=== PATIENT | female | born 1970 | race African-American/Black ===

== ENCOUNTER 2021-08-04 22:51 | Emergency (ER) | payer SELFPAY ==
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
--- NOTE | 2021-08-04 23:39 | EDPHYS ---
Physician Documentation [facility] Name: Kerry Teresa Age: 51 yrs Sex: Female : 1970 Arrival Date: 08/04/2021 Time: 22:51 Bed 11 Private MD: ED Physician Karely Frances HPI: 08/04 23:35 This 51 yrs old Black Female presents to ER via EMS with complaints of Arm Pain. sp3 23:35 51-year-old female with no past medical history presents to the ED for right wrist pain sp3 that has been occurring for 4 years is worsened over the last 4 months and today she decided she wanted to seek care. There has been no acute trauma in the recent past and patient states that the pain has not materially changed over the last 4 months. Patient states she has no local physicians and has not been fully evaluated for her symptoms. On ROS patient denies headache, neck pain, chest pain, back pain, shortness of breath, elbow pain, shoulder pain, loss of function of the hand, loss of mobility or motility, any other significant findings on ROS.. Historical: - Allergies: 22:55 No Known Allergies; jh5 - PMHx: 22:55 None; [facility] - Immunization history:: Adult Immunizations up to date. - Social history:: Smoking status: Patient denies any tobacco usage or history of. Patient uses alcohol, occasionally. ROS: 23:36 Constitutional: Negative for fever, chills, and weight loss, Eyes: Negative for injury, sp3 pain, redness, and discharge, Neck: Negative for injury, pain, and swelling, Cardiovascular: Negative for chest pain, palpitations, and edema, Respiratory: Negative for shortness of breath, cough, wheezing, and pleuritic chest pain, Abdomen/GI: Negative for abdominal pain, nausea, vomiting, diarrhea, and constipation, Skin: Negative for injury, rash, and discoloration, Neuro: Negative for headache, weakness, numbness, tingling, and seizure. 23:36 All other systems are negative. Exam: 23:36 Constitutional: This is a well developed, well nourished patient who is awake, alert, sp3 and in no acute distress. Head/Face: Normocephalic, atraumatic. Neck: Trachea midline, no thyromegaly or masses palpated, and no cervical lymphadenopathy. Supple, full range of motion without nuchal rigidity, or vertebral point tenderness. No Meningismus. Chest/axilla: Normal chest wall appearance and motion. Nontender with no deformity. No lesions are appreciated. Cardiovascular: Regular rate and rhythm with a normal S1 and S2. No gallops, murmurs, or rubs. Normal PMI, no JVD. No pulse deficits. Respiratory: Lungs have equal breath sounds bilaterally, clear to auscultation and percussion. No rales, rhonchi or wheezes noted. No increased work of breathing, no retractions or nasal flaring. Abdomen/GI: Soft, non-tender, with normal bowel sounds. No distension or tympany. No guarding or rebound. No evidence of tenderness throughout. Back: No spinal tenderness. No costovertebral tenderness. Full range of motion. Neuro: Awake and alert, GCS 15, oriented to person, place, time, and situation. Cranial nerves II-XII grossly intact. Motor strength 5/5 in all extremities. Sensory grossly intact. Cerebellar exam normal. Normal gait. Psych: Awake, alert, with orientation to person, place and time. Behavior, mood, and affect are within normal limits. 23:36 Musculoskeletal/extremity: Patient's right wrist and hand has no swelling. There is pain to palpation of the distal wrist on the radial side that is out of proportion to exam findings or degree of pressure. Radial pulses normal as is cap refill. Patient has full range of motion including supination and pronation. Elbow exam is normal. There is no muscle wasting.. Vital Signs: 22:52 BP 121 / 84; Pulse 80; Resp 18; Temp 98.4; Pulse Ox 100% ; Weight 54.43 kg; Height 5 jh5 ft. 5 in. (165.10 cm); 23:29 Pulse 86; Resp 18; Pulse Ox 100% on R/A; ld1 22:52 Body Mass Index 19.97 (54.43 kg, 165.10 cm) jh5 MDM: 23:30 Patient medically screened. sp3 23:37 Data reviewed: vital signs, nurses notes. ED course: Patient was resting comfortably sp3 fully asleep and upon waking up had pain out of proportion to exam. I do not believe patient has an acute emergency and her symptoms have been occurring for 4 years. Will discharge patient on diclofenac prescription and orthopedic referral. No further work-up indicated in the ED.. Administered Medications: No medications were administered Disposition Summary: 08/04/21 23:38 Discharge Ordered Location: Home sp3 Condition: Stable sp3 Diagnosis - Pain in right wrist sp3 Followup: sp3 - With: Ignacio Epps MD - When: As needed - Reason: Recheck today's complaints Discharge Instructions: - Discharge Summary Sheet sp3 - Musculoskeletal Pain sp3 Forms: - Medication Reconciliation Form sp3 - Thank You Letter sp3 - Antibiotic Education sp3 - Prescription Opioid Use sp3 Prescriptions: - Diclofenac Sodium 75 mg Oral Tablet Sustained Release - take 1 tablet by ORAL route 2 times per day; 30 tablet; Refills: 0, Product sp3 Selection Permitted Signatures: Karely Frances MD MD sp3 Beverly Ybarra RN RN jh5
[2021-08-04 23:55] VITALS: BP 121/84; TEMP 98.4; O2SAT 100
== END 2021-08-04 23:45 | disposition home or self-care (01) ==
LOC: ER 22:51
DX: M25.531 Pain in right wrist (principal)
CPT/HCPCS: 99283

== ENCOUNTER 2021-10-20 08:32 | Inpatient (IN) | payer SELFPAY ==
[2021-10-20] MEDS: CEFTRIAXONE 1,000 MG in NA CHLORIDE 0.9% 50 ML IVPB SCH (09:00)
[2021-10-20 09:38] LABS: Absolute Lymphocytes (CBC) 2.3 K/uL (0.7-4.9); Hematocrit 36.6 % (36.0-45.0); Lymphocytes % 43.1 % (15.3-44.8); MPV 8.5 fL (7.6-11.3); RBC Red Blood Cell Count 4.15 M/uL (3.86-4.86)
[2021-10-20 09:49] LABS: Protime INR 0.98
[2021-10-20] MEDS ORDERED: THIAMINE 200 MG/2 ML INJ ONE (09:51)
[2021-10-20] MEDS ORDERED: NA CHLORIDE 0.9% 1,000 ML ONE (09:51)
[2021-10-20 09:56] LABS: Urine Blood Trace-intact (Negative); Urine Glucose Negative (Negative); Urine Protein Negative (Negative); Urine Specific Gravity 1.015 (1.005-1.030)
[2021-10-20 10:07] LABS: ALT/SGPT 19 U/L (12-78); AST/SGOT 26 U/L (15-37); Albumin 3.3 g/dL (3.4-5.0); Alkaline Phosphatase 102 U/L (45-117); BUN Blood Urea Nitrogen 7 mg/dL (7-18); Bicarbonate 27 mmol/L (21-32); Bilirubin Total 0.3 mg/dL (0.2-1.0); Glucose Level 93 mg/dL (74-106); Potassium 3.8 mmol/L (3.5-5.1); Protein, Total 8.8 g/dL (6.4-8.2); Sodium Level 139 mmol/L (136-145)
[2021-10-20 10:08] LABS: Barbiturates NEGATIVE (NEGATIVE); Benzodiazepines NEGATIVE (NEGATIVE); Cocaine NEGATIVE (NEGATIVE); METHAMPHETAM NEGATIVE (NEGATIVE); Methadone NEGATIVE (NEGATIVE); Opiates NEGATIVE (NEGATIVE); Phencyclidine NEGATIVE (NEGATIVE); THC Cannibis NEGATIVE (NEGATIVE)
[2021-10-20 10:13] LABS: Bilirubin Direct < 0.1 mg/dL (0-0.2)
--- NOTE | 2021-10-20 10:41 | EDPHYS ---
Physician Documentation [facility] Name: Kerry Teresa Age: 51 yrs Sex: Female : 1970 Arrival Date: 10/20/2021 Time: 08:35 Bed 19 Private MD: ED Physician Hari Alberts HPI: 10/20 10:31 This 51 yrs old Black Female presents to ER via EMS with complaints of etoh abuse and rigoberto tylenol overdose. 10:31 The patient presents to the emergency department after a known overdose, that was rigoberto intentional. Context: Time: this morning, last night, Extent: moderate ingestion, the original prescription was for 12 pills/capsules, tylenol 500 mg 12-20. Associated signs and symptoms: The patient has no apparent associated signs or symptoms. Severity of symptoms: At their worst the symptoms were mild in the emergency department the symptoms are unchanged. The patient presents to the emergency department with anxiety, depression, a history of substance abuse, Type: beer. Onset: The symptoms/episode began/occurred this morning, last night. Past psychiatric history: Prior diagnosis: depression. 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 - Social history:: Smoking status: Patient reports the use of cigarette tobacco products, smokes one-half pack cigarettes per day. - Family history:: not pertinent. ROS: 10:31 Constitutional: Negative for fever, chills, and weight loss, Eyes: Negative for injury, rigoberto pain, redness, and discharge, ENT: Negative for injury, pain, and discharge, Neck: Negative for injury, pain, and swelling, Cardiovascular: Negative for chest pain, palpitations, and edema, Respiratory: Negative for shortness of breath, cough, wheezing, and pleuritic chest pain, Abdomen/GI: Negative for abdominal pain, nausea, vomiting, diarrhea, and constipation, Back: Negative for injury and pain, : Negative for injury, bleeding, discharge, and swelling, MS/Extremity: Negative for injury and deformity, Skin: Negative for injury, rash, and discoloration, Neuro: Negative for headache, weakness, numbness, tingling, and seizure, Allergy/Immunology: Negative for hives, rash, and allergies, Endocrine: Negative for neck swelling, polydipsia, polyuria, polyphagia, and marked weight changes, Hematologic/Lymphatic: Negative for swollen nodes, abnormal bleeding, and unusual bruising. 10:31 Psych: Positive for anxiety, depression, suicidal ideation. Exam: 10:31 Constitutional: This is a well developed, well nourished patient who is awake, alert, rigoberto and in no acute distress. Head/Face: Normocephalic, atraumatic. Eyes: Pupils equal round and reactive to light, extra-ocular motions intact. Lids and lashes normal. Conjunctiva and sclera are non-icteric and not injected. Cornea within normal limits. Periorbital areas with no swelling, redness, or edema. ENT: Nares patent. No nasal discharge, no septal abnormalities noted. Tympanic membranes are normal and external auditory canals are clear. Oropharynx with no redness, swelling, or masses, exudates, or evidence of obstruction, uvula midline. Mucous membranes moist. Neck: Trachea midline, no thyromegaly or masses palpated, and no cervical lymphadenopathy. Supple, full range of motion without nuchal rigidity, or vertebral point tenderness. No Meningismus. Chest/axilla: Normal chest wall appearance and motion. Nontender with no deformity. No lesions are appreciated. Cardiovascular: Regular rate and rhythm with a normal S1 and S2. No gallops, murmurs, or rubs. Normal PMI, no JVD. No pulse deficits. Respiratory: Lungs have equal breath sounds bilaterally, clear to auscultation and percussion. No rales, rhonchi or wheezes noted. No increased work of breathing, no retractions or nasal flaring. Abdomen/GI: Soft, non-tender, with normal bowel sounds. No distension or tympany. No guarding or rebound. No evidence of tenderness throughout. Back: No spinal tenderness. No costovertebral tenderness. Full range of motion. Skin: Warm, dry with normal turgor. Normal color with no rashes, no lesions, and no evidence of cellulitis. MS/ Extremity: Pulses equal, no cyanosis. Neurovascular intact. Full, normal range of motion. Neuro: Awake and alert, GCS 15, oriented to person, place, time, and situation. Cranial nerves II-XII grossly intact. Motor strength 5/5 in all extremities. Sensory grossly intact. Cerebellar exam normal. Normal gait. Psych: Awake, alert, with orientation to person, place and time. Behavior, mood, and affect are within normal limits. 10:31 ECG was reviewed by the Attending Physician. Vital Signs: 08:37 BP 111 / 83; Pulse 87; Resp 18; Temp 98.3(O); Pulse Ox 99% on R/A; Weight 54.43 kg; gomez Height 5 ft. 2 in. (157.48 cm); 10:47 BP 105 / 73; Pulse 16; Resp 82; Pulse Ox 97% on R/A; gomez 08:37 Body Mass Index 21.95 (54.43 kg, 157.48 cm) gomez MDM: 08:37 Patient medically screened. [facility] 10:36 Data reviewed: vital signs, nurses notes, lab test result(s), EKG. Data interpreted: [facility] threat monitoring analyst: rate is 87 beats/min, rhythm is regular, Pulse oximetry: on room air is 99 %. Test interpretation: by ED physician or midlevel provider: ECG. Counseling: I had a detailed discussion with the patient and/or guardian regarding: the historical points, exam findings, and any diagnostic results supporting the discharge/admit diagnosis, lab results, radiology results, the need for further work-up and treatment in the hospital. 10/20 08:53 Order name: Acetaminophen [facility] 10/20 08:53 Order name: Basic Metabolic Panel; Complete Time: 10:22 [facility] 10/20 08:53 Order name: CBC with Diff; Complete Time: 10:22 [facility] 10/20 08:53 Order name: ETOH Level; Complete Time: 10:22 [facility] 10/20 08:53 Order name: Hepatic Function; Complete Time: 10:22 [facility] 10/20 08:53 Order name: PT-INR; Complete Time: 10:22 [facility] 10/20 08:53 Order name: Ptt, Activated; Complete Time: 10:22 [facility] 10/20 08:53 Order name: Salicylate; Complete Time: 10:22 [facility] 10/20 08:53 Order name: Urine Drug Screen; Complete Time: 10:22 [facility] 10/20 08:53 Order name: Acetaminophen Level; Complete Time: 10:22 EDMS 10/20 09:56 Order name: Urine Dipstick-Ancillary; Complete Time: 10:22 [facility]MS 10/20 10:23 Order name: Urine Culture [facility] 10/20 10:24 Order name: Urine Culture [facility] 10/20 11:23 Order name: COVID-19 SARS RT PCR (Document "Date of Onset" if Symptomatic) 10/20 08:53 Order name: EKG; Complete Time: 08:53 [facility] 10/20 08:53 Order name: EKG - Nurse/Tech; Complete Time: 09:43 [facility] 10/20 08:53 Order name: IV Saline Lock; Complete Time: 09:43 [facility] 10/20 08:53 Order name: Labs collected and sent; Complete Time: 09:43 [facility] 10/20 08:53 Order name: Urine Dipstick-Ancillary (obtain specimen); Complete Time: 10:09 [facility] 10/20 08:53 Order name: Urine Test (obtain specimen); Complete Time: 10:08 [facility] 10/20 12:50 Order name: SARS-COV-2 RT PCR EDMS EC:31 Rate is 86 beats/min. Rhythm is regular. QRS [place] is Normal. [place] interval is normal. QRS rigoberto interval is normal. QT interval is normal. No Q waves. T waves are Normal. No ST changes noted. Clinical impression: NSR w/ Non-specific ST/T Changes and No evidence of ischemia. Interpreted by me. Reviewed by me. Administered Medications: 09:56 Drug: Thiamine 100 mg Route: IV; Rate: per protocol; Site: left antecubital; gomez 10:08 Drug: NS 0.9% 1000 ml Route: IV; Rate: 1 bolus; Site: left antecubital; gomez 11:06 Drug: Rocephin (cefTRIAXone) 1 grams Route: IV; Rate: per protocol; Site: left gomez antecubital; Disposition Summary: 10/20/21 10:41 Hospitalization Ordered Hospitalization Status: Observation rigoberto Location: Telemetry/MedSurg (observation) rigoberto Condition: Fair rigoberto Problem: new rigoberto Symptoms: have improved rigoberto Bed/Room Type: Standard rigoberto Provider: Prince Brianna(10/20/21 10:46) rigoberto Room Assignment: [facility](10/20/21 12:35) ss Diagnosis - Alcohol abuse with intoxication rigoberto - Poisoning by unspecified drugs, medicaments and biological substances, rigoberto undetermined, initial encounter - UTI/ Urinary tract infection, site not specified [facility] Forms: - Medication Reconciliation Form rigoberto - SBAR form [facility] Signatures: Dispatcher [employer] EDHari Villaseñor MD MD cha Smirch, Shelby, RN RN ss SpeedyrGiovanna RN RN gomez Corrections: (The following items were deleted from the chart) 10:41 10:41 Anemia, unspecified counts include 234 beds at the [facility] 10:46 10:41 Jarad Som counts include 234 beds at the [facility] 12:35 10:41 rigoberto
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
[2021-10-20] MEDS ORDERED: CEFTRIAXONE 1000 MG/VIAL ONE (11:05)
[2021-10-20] MEDS ORDERED: ACETYLCYST 6,000 MG/30 ML VIAL PO ONE (12:00)
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
[2021-10-20 15:30] VITALS: BMI 20.8
[2021-10-20] MEDS ORDERED: D5W IV ONE ×3 (16:00→21:00)
[2021-10-20] MEDS ORDERED: ACETYLCYSTEINE IV ONE ×5 (16:00→21:00)
[2021-10-20] MEDS ORDERED: DEXTROSE 5% IV ONE ×2 (16:15→17:00)
[2021-10-20] MEDS ORDERED: WATER IV ONE ×2 (16:15→17:00)
[2021-10-20] MEDS: NA CHLORIDE 0.9% 1,000 ML IV SCH (16:19)
[2021-10-20] MEDS: ENOXAPARIN 40 MG/0.4 ML SQ SCH (17:54)
[2021-10-21] MEDS: NA CHLORIDE 0.9% 1,000 ML IV SCH ×4 (01:24→21:24)
[2021-10-21] MEDS: CEFTRIAXONE 1,000 MG in NA CHLORIDE 0.9% 50 ML IVPB SCH (09:00)
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
--- NOTE | 2021-10-21 11:35 | EKG ---
Test Date: 2021-10-20 Test Time: 09:42:15 Trimming Cutter: HAUS MEASUREMENT RESULTS: Intervals: Rate: 86 MS: 124 QRSD: 70 QT: 388 QTc: 464 [place]: P: 34 MS: 124 QRS: 32 T: 56 INTERPRETIVE STATEMENTS: Normal sinus rhythm Septal infarct, age undetermined Abnormal ECG No previous ECG available for comparison Electronically Signed On 10-21-21 11:29:27 CLIENT ACCOUNT MANAGER by Benjamín Cisse
--- NOTE | 2021-10-21 13:09 | P.PN ---
Subjective Date of Service: 10/21/21 Chief Complaint: Tylenol toxicity Subjective: Improving (Mental status is returned to baseline. Tylenol level is now undetectable after 24 hours of IV acetylcysteine.) Physical Examination - Vital Signs Temperature: 98.3 F Blood Pressure: 137/86 Pulse: 69 Respirations: 18 Pulse Ox (%): 98 - Physical Exam General: Alert, In no apparent distress, Cooperative HEENT: Atraumatic, Normocephalic Respiratory: Clear to auscultation bilaterally, Normal air movement Cardiovascular: Regular rate/rhythm, Normal S1 S2 Gastrointestinal: Soft and benign, Non-distended Neurological: Normal speech, Normal affect Assessment And Plan - Current Problems (Diagnosis) (1) Toxic encephalopathy Current Visit: Yes Status: Acute (2) ETOH abuse Current Visit: Yes Status: Acute (3) Tylenol toxicity Current Visit: Yes Status: Acute Physician Review Additional Text: Assessment Patient is a 51-year-old -[place] African female currently being admitted for toxic encephalopathy. She had Tylenol level of 149 and EtOH level of 296. She required 24-hour treatment with IV acetylcysteine. Her Tylenol level is now undetectable. Its believed that she might have been taken several pills of Tylenol. [facility] was consulted for mental health. Toxic encephalopathy EtOH abuse Plan: [facility] recommends inpatient psych We will hold discharge until then Otherwise, she is medically cleared for discharge whenever we obtain acceptance She cannot leave AMA.
[2021-10-21] MEDS: ENOXAPARIN 40 MG/0.4 ML SQ SCH (16:53)
[2021-10-22] MEDS: NA CHLORIDE 0.9% 1,000 ML IV SCH (05:25)
[2021-10-22] MEDS: CEFTRIAXONE 1,000 MG in NA CHLORIDE 0.9% 50 ML IVPB SCH (08:04)
--- NOTE | 2021-10-22 09:45 | P.PN ---
Subjective Date of Service: 10/22/21 Chief Complaint: Tylenol toxicity Subjective: Improving, Other (Doing well. Mental status is back to baseline. She is pending transfer to inpatient psych unit.) Physical Examination - Vital Signs Temperature: 97.3 F Blood Pressure: 145/83 Pulse: 66 Respirations: 17 Pulse Ox (%): 98 - Physical Exam General: Alert, In no apparent distress, Cooperative HEENT: Atraumatic, Normocephalic Respiratory: Clear to auscultation bilaterally, Normal air movement Cardiovascular: Normal pulses, Regular rate/rhythm, Normal S1 S2 Gastrointestinal: Soft and benign, Non-distended Musculoskeletal: No clubbing, No swelling, No contractures, No erythema, No tenderness Neurological: Normal speech, Normal affect - Studies Microbiology Data (last 24 hrs): 10/20/21 10:23 Clean Catch Urine [place] Count - Final 10/20/21 10:23 Clean Catch Urine - Final Escherichia Coli Esbl Gram Neg Satny Assessment And Plan - Current Problems (Diagnosis) (1) Toxic encephalopathy Current Visit: Yes Status: Acute (2) ETOH abuse Current Visit: Yes Status: Acute (3) Tylenol toxicity Current Visit: Yes Status: Acute Physician Review Additional Text: Assessment Patient is a 51-year-old -Greek female currently being admitted for toxic encephalopathy. She had Tylenol level of 149 and EtOH level of 296. She required 24-hour treatment with IV acetylcysteine. Her Tylenol level is now undetectable. Its believed that she might have been taken several pills of Tylenol. [facility] was consulted for mental health. Toxic encephalopathy EtOH abuse UTI- Plan: [facility] recommends inpatient psych Patient has ESBL E.coli. DC ceftriaxone and start meropenem Will plan to [place] for at least 3 days. She can be discharged on IM ertapenem Otherwise, she is medically cleared for discharge whenever we obtain acceptance She cannot leave A.
[2021-10-22] MEDS: Meropenem 1,000 MG in NA CHLORIDE 0.9% 100 ML IV SCH ×3 (10:45→23:28)
[2021-10-22] MEDS: ENOXAPARIN 40 MG/0.4 ML SQ SCH (17:55)
[2021-10-22] MEDS: MELATONIN 5 MG TABLET PO PRN (20:33)
[2021-10-23] MEDS: Meropenem 1,000 MG in NA CHLORIDE 0.9% 100 ML IV SCH ×3 (08:11→23:47)
[2021-10-23 08:21] VITALS: O2SAT 97
--- NOTE | 2021-10-23 10:01 | P.PN ---
Subjective Date of Service: 10/23/21 Chief Complaint: Tylenol toxicity Subjective: Improving (No acute events overnight) Physical Examination - Vital Signs Temperature: 97.2 F Blood Pressure: 127/76 Pulse: 73 Respirations: 16 Pulse Ox (%): 97 - Physical Exam General: Alert, In no apparent distress, Cooperative HEENT: Atraumatic, Normocephalic Musculoskeletal: No clubbing, No swelling, No contractures Neurological: Normal speech, Normal affect - Studies Microbiology Data (last 24 hrs): 10/20/21 10:23 Clean Catch Urine [place] Count - Final 10/20/21 10:23 Clean Catch Urine - Final Escherichia Coli Esbl Gram Neg Santy Assessment And Plan - Current Problems (Diagnosis) (1) Toxic encephalopathy Current Visit: Yes Status: Acute (2) ETOH abuse Current Visit: Yes Status: Acute (3) Tylenol toxicity Current Visit: Yes Status: Acute Physician Review Additional Text: Assessment Patient is a 51-year-old -Eritre[place] female currently being admitted for toxic encephalopathy. She had Tylenol level of 149 and EtOH level of 296. She required 24-hour treatment with IV acetylcysteine. Her Tylenol level is now undetectable. Its believed that she might have been taken several pills of Tylenol. [facility] was consulted for mental health and they recommended inpatient psych admission. Toxic encephalopathy EtOH abuse UTI- Plan: Discharge once accepted to inpatient psych ESBL E. colic. Day 2 of meropenem Will plan to [place] for at least 3 days. She can be discharged on IM ertapenem She cannot leave AMA. 10/23/21 09:59
[2021-10-23] MEDS: ENOXAPARIN 40 MG/0.4 ML SQ SCH (16:14)
[2021-10-23] MEDS: MELATONIN 5 MG TABLET PO PRN (20:29)
[2021-10-24] MEDS: Meropenem 1,000 MG in NA CHLORIDE 0.9% 100 ML IV SCH ×2 (09:45→17:00)
[2021-10-24 16:10] VITALS: BP 123/73; TEMP 97.5
[2021-10-24] MEDS: ENOXAPARIN 40 MG/0.4 ML SQ SCH (17:00)
== END 2021-10-24 18:10 | disposition home or self-care (01) | DRG 92 ==
LOC: ER 08:32 → ERHOLD 10:59 → 2ND 14:21 → OBSVTOIN 17:05
PROVIDERS: ADMIT Internal Medicine; ATTEND Internal Medicine
DX: G92.8 Other toxic encephalopathy (principal); N39.0 Urinary tract infection, site not specified; Z16.12 Extended spectrum beta lactamase (ESBL) resistance; T39.1X5A Adverse effect of 4-Aminophenol derivatives, initial encounter; F10.10 Alcohol abuse, uncomplicated; B96.20 Unspecified Escherichia coli [E. coli] as the cause of diseases classified elsewhere; Z20.822 Contact with and (suspected) exposure to COVID-19
CPT/HCPCS: 36415; 80048; 80076; 80307; 80320; 80329; 81003; 85025; 85610; 85730; 87077; 87086; 87088; 87186; 93005; 96374; 96375; 99285; G0378; J0132; J1650; J2185; J3411; J7030; J7060; U0003

== ENCOUNTER → 2023-08-30 | Emergency (ER) | payer OTHER, SELFPAY ==
[~2023-08-30] MED LIST: FAMOTIDINE 20 MG/2 ML VIAL IV ONE; NA CHLORIDE 0.9% 1,000 ML ONE; ONDANSETRON 4 MG/2 ML VIAL ONE
[2023-08-30 20:19] LABS: Hematocrit 38.1 % (36.0-45.0); MCV 94.1 fL (80-100); MPV 7.6 fL (7.6-11.3); Platelets 222 thou/uL (152-406); RBC Red Blood Cell Count 4.05 M/uL (3.86-4.86)
[2023-08-30 20:39] LABS: Albumin 3.3 g/dL (3.4-5.0); Bilirubin Total 0.4 mg/dL (0.2-1.0); Potassium 3.7 mEq/L (3.5-5.1); Protein, Total 8.9 g/dL (6.4-8.2)
[2023-08-30 20:46] LABS: Protime INR 0.97
[2023-08-30 20:48] LABS: Magnesium 1.9 mg/dL (1.6-2.4); NT PRO-BNP 24 pg/mL (<125)
--- NOTE | 2023-08-30 21:01 | RAD REPORT ---
EXAM DESCRIPTION: Avani Single View08/30/2023 8:53 pm CLINICAL HISTORY: CHEST PAIN COMPARISON: No comparisons TECHNIQUE: Portable AP view of the chest. FINDINGS: The lungs are clear. No pneumothorax or effusion. The cardiomediastinal contours are unre markable. IMPRESSION: No acute cardiopulmonary process.
[2023-08-30 21:19] LABS: Specific Gravity < 1.005 (1.005-1.030); Urine Bacteria <20 /HPF (<20); Urine Bilirubin NEGATIVE (Negative); Urine Blood Trace (Negative); Urine Clarity Extremely Turbid (Clear); Urine Color Colorless (Yellow); Urine Glucose NEGATIVE (Negative); Urine Protein NEGATIVE (Negative); Urine RBC <5 /HPF (None Seen); Urine Urobilinogen Normal (Normal); Urine pH 6.5 (5.0-7.0)
[2023-08-30 21:22] LABS: Barbiturates NEGATIVE (NEGATIVE); Benzodiazepines NEGATIVE (NEGATIVE); Cocaine NEGATIVE (NEGATIVE); METHAMPHETAM NEGATIVE (NEGATIVE); Methadone NEGATIVE (NEGATIVE); Opiates NEGATIVE (NEGATIVE); Phencyclidine NEGATIVE (NEGATIVE); THC Cannibis NEGATIVE (NEGATIVE)
[2023-08-30 21:22] LABS: Troponin High Sensitivity < 3.0 pg/mL (<58.9)
--- NOTE | 2023-08-31 00:45 | ER ---
Nurse's Notes [facility] Name: Kerry Teresa Age: 53 yrs Sex: Female : 1970 Arrival Date: 08/30/2023 Time: 18:34 Bed 16 Private MD: Diagnosis: Nausea with vomiting, unspecified;Diarrhea, unspecified;Alcohol dependence with intoxication Presentation: 08/30 19:37 Chief complaint: Patient states: vomiting, body aches, chills, ABD pain and chest pain km8 starting yesterday; pt is a daily 6 pack beer drinker and has not been able to keep her beer down. Coronavirus screen: Client denies travel out of the [place] in the last 14 days. Ebola Screen: No symptoms or risks identified at this time. Initial Sepsis Screen: Does the patient meet any 2 criteria? HR > 90 bpm. No. Patient's initial sepsis screen is negative. Does the patient have a suspected source of infection? No. Patient's initial sepsis screen is negative. Risk Assessment: Do you want to hurt yourself or someone else? Patient reports no desire to harm self or others. Onset of symptoms was August 29, 2023. 19:37 Method Of Arrival: Wheelchair km8 19:37 Acuity: KINGS 2 km8 Triage Assessment: 19:39 General: Appears uncomfortable, Behavior is cooperative, appropriate for age, anxious. km8 Pain: Complains of pain in chest, ABD, and body aches Pain currently is 10 out of 10 on a pain scale. EENT: No signs and/or symptoms were reported regarding the EENT system. Neuro: Level of Consciousness is awake, alert, obeys commands, Oriented to person, place, time, situation, tremors. Cardiovascular: Reports chest pain, Capillary refill < 3 seconds Patient's skin is warm and dry. Respiratory: Airway is patent Respiratory effort is even, unlabored, Respiratory pattern is regular, symmetrical. GI: Abdomen is Reports lower abdominal pain, upper abdominal pain, vomiting. : No signs and/or symptoms were reported regarding the genitourinary system. Derm: Skin is intact, Skin is dry, Skin is pink, warm \T\ dry. normal, Skin temperature is warm. Musculoskeletal: Range of motion: intact in all extremities. 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 - Social history:: Smoking status: Patient reports use of chewing tobacco. Patient uses alcohol, on a daily basis. claims drinking about a 6 pack/day. Patient/guardian denies using alcohol. Screenin:08 [facility] ED Fall Risk Assessment (Adult) History of falling in the last 3 months, kd3 including since admission No falls in past 3 months (0 pts) Confusion or Disorientation No (0 pts) Intoxicated or Sedated No (0 pts) Impaired Gait No (0 pts) Mobility Assist Device Used No (0 pt) Altered Elimination No (0 pt) Score/Fall Risk Level 0 - 2 = Low Risk Oriented to surroundings, Provided non-skid footwear, Hourly rounding (assess needs \T\ fall precautionary measures) done. Abuse screen: Denies threats or abuse. Denies injuries from another. Nutritional screening: No deficits noted. Tuberculosis screening: No symptoms or risk factors identified. Assessment: 20:12 General: Appears in no apparent distress. Behavior is calm, cooperative, appropriate kd3 for age. GI: No deficits noted. Abdomen is flat, non-distended, Bowel sounds present X 4 quads. Abd is soft and non tender X 4 quads. Reports nausea, vomiting. 20:12 General: Smells of alcohol. kd3 21:16 Reassessment: Patient appears in no apparent distress at this time. Pt became nauseated kd3 and had dry heaves after getting up to go to the bathroom. The patient was taken to and from the bathroom via wheelchair and only had to stand for transfers. PA Page notified. Vital Signs: 19:37 BP 105 / 74; Pulse 101; Resp 18; Temp 98.7(O); Pulse Ox 99% on R/A; Weight 54.43 kg km8 (R); Height 5 ft. 3 in. (R); Pain 10/10; 19:55 BP 117 / 88; Pulse 99; Resp 24; Pulse Ox 98% on R/A; kd3 19:55 BP 111 / 91; Pulse 92; Resp 20; Pulse Ox 98% ; kd3 23:44 BP 117 / 80; Pulse 92; Resp 20; Pulse Ox 94% on R/A; jb4 08/31 00:00 BP 111 / 79; Pulse 96; Resp 20; Pulse Ox 100% ; jb4 01:00 BP 108 / 62; Pulse 79; Resp 18; Temp 98; Pulse Ox 98% ; 4 08/30 19:37 Body Mass Index 21.26 (54.43 kg, 160.02 cm) [facility] 08/30 19:37 Pain Scale: Adult [facility] Vitals: 08/30 20:08 Cardiac Rhythm Assessment Regular Sinus rhythm. kd3 [place] Coma Score: 20:08 Eye Response: spontaneous(4). Motor Response: obeys commands(6). Verbal Response: kd3 oriented(5). Total: 15. 08/31 01:00 Eye Response: spontaneous(4). Motor Response: obeys commands(6). Verbal Response: jb4 oriented(5). Total: 15. ED Course: 08/30 18:37 Patient arrived in ED. im 19:20 Hari Doan PA is PHCP. cp 19:20 Karely Frances MD is Attending Physician. cp 19:39 Triage completed. km8 19:39 Arm band placed on right wrist. km8 20:06 Sunitha Rivera, LETY is Primary Nurse. kd3 20:08 No apparent distress. Awaiting lab results. kd3 20:08 Patient has correct armband on for positive identification. Fall risk band placed. kd3 Placed in gown. Bed in low position. Call light in reach. Side rails up X2. Provided Education on: Plan of care. Client placed on continuous cardiac and pulse oximetry monitoring. NIBP monitoring applied. 20:08 CBC with Diff Sent. kd3 20:08 CMP Sent. kd3 20:08 Lipase Sent. kd3 20:08 No provider procedures requiring assistance completed. Inserted saline lock: 20 gauge kd3 in left forearm, using aseptic technique. 20:47 XRAY Chest (1 view) Sent. kd3 20:47 Troponin HS Sent. kd3 20:48 ETOH Level Sent. kd3 20:48 Inserted saline lock: 20 gauge in left hand, using aseptic technique. Blood collected. kd3 20:54 XRAY Chest (1 view) In Process Unspecified. EDMS 21:06 UDS Sent. ls5 23:23 CT Abd/Pelvis - IV Contrast Only In Process Unspecified. EDMS 08/31 00:15 Michele Olea MD is Attending Physician. cp 01:07 IV discontinued, intact, bleeding controlled, No redness/swelling at site. Pressure jb4 dressing applied. Administered Medications: 08/30 20:46 Drug: NS 0.9% IV 1000 ml IV at 1000 ml/hr Per protocol; 1000 mL bolus Route: IV; Rate: kd3 1000 ml/hr; Site: left forearm; 08/31 00:28 Follow up: IV Status: Completed infusion; IV Intake: 1000ml jb4 08/30 20:51 Drug: Ondansetron IVP 4 mg IVP once; over 2 minutes Route: IVP; Site: left forearm; kd3 08/31 00:29 Follow up: Response: No adverse reaction jb4 08/30 20:51 Drug: Famotidine IVP 20 mg IVP once; dilute with 10 mL 0.9% NaCl; give over 2 minutes kd3 Route: IVP; Site: left forearm; 08/31 00:29 Follow up: Response: No adverse reaction jb4 Medication: 08/30 20:08 VIS not applicable for this client. kd3 Intake: 08/31 00:28 IV: 1000ml; Total: 1000ml. jb4 Outcome: 00:44 Discharge ordered by . cp 01:07 Discharged to home with significant other, jb4 01:07 Condition: stable 01:07 Discharge instructions given to significant other, Instructed on discharge instructions, follow up and referral plans. Demonstrated understanding of instructions, follow-up care, 01:33 Patient left the ED. jb4 Signatures: Dispatcher [employer] [facility] Hari Doan PA PA cp Bryson, James RN RN jb4 Sunitha Rivera RN RN kd3 Niranjan Acharya ls5 Shereen Mak Katie RN RN km8 Corrections: (The following items were deleted from the chart) 08/30 19:39 19:39 PMHx: None; km8 km8 21:31 20:12 GI: No deficits noted. Abdomen is flat, non-distended, Bowel sounds present X 4 kd3 quads. Abd is soft and non tender X 4 quads. Reports nausea, vomiting, kd3
--- NOTE | 2023-08-31 00:45 | EDPHYS ---
Physician Documentation [facility] [place] Name: Kerry Teresa Age: 53 yrs Sex: Female : 1970 Arrival Date: 08/30/2023 Time: 18:34 Bed 16 Private MD: ED Physician Michele Olea HPI: 08/30 20:00 This 53 yrs old Black Female presents to ER via Wheelchair with complaints of cp Vomiting/Diarrhea. 20:00 The patient presents to the emergency department with nausea, that is moderate, cp vomiting, that is intermittent, diarrhea, that is intermittent. 20:00 Onset: The symptoms/episode began/occurred yesterday. cp 20:00 Possible causes: unknown. Associated signs and symptoms: Pertinent positives: abdominal cp pain, chest pain, Pertinent negatives: constipation, fever, GI bleeding. Severity of symptoms: in the emergency department the symptoms are unchanged despite home interventions. Patient reports daily drinking of alcohol: beer. Patient reports being unable to "hold beer down". 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 - Social history:: Smoking status: Patient reports use of chewing tobacco. Patient uses alcohol, on a daily basis. claims drinking about a 6 pack/day. Patient/guardian denies using alcohol. ROS: 20:05 Constitutional: Positive for poor PO intake, Negative for fever, cp 20:05 Eyes: Negative for injury, pain, redness, and discharge, cp 20:05 ENT: Negative for ear pain, sore throat, difficulty swallowing, difficulty handling secretions, 20:05 Cardiovascular: Positive for chest pain, 20:05 Respiratory: Negative for cough, shortness of breath, wheezing, 20:05 Abdomen/GI: Positive for abdominal pain, nausea and vomiting, diarrhea, Negative for constipation, black/tarry stool, rectal bleeding, 20:05 Back: Negative for pain at rest, pain with movement, 20:05 : Negative for urinary symptoms, 20:05 Neuro: Negative for altered mental status, headache, syncope, 20:05 All other systems are negative, Exam: 20:10 Constitutional: The patient appears in no acute distress, alert, awake, cp non-diaphoretic, non-toxic, well developed, well nourished, smells of alcohol, ETOH, uncomfortable, unkempt, 20:10 Head/Face: Normocephalic, atraumatic. cp 20:10 Eyes: Periorbital structures: appear normal, Conjunctiva: normal, no exudate, no injection, Sclera: no appreciated abnormality, Lids and lashes: appear normal, bilaterally, 20:10 ENT: External ear(s): are unremarkable, Nose: is normal, Mouth: Lips: moist, Oral mucosa: pink and intact, moist, Posterior pharynx: Airway: no evidence of obstruction, patent, erythema, is not appreciated, exudate, is not appreciated, 20:10 Neck: ROM/movement: is normal, is supple, without pain, no range of motions limitations, no meningismus, 20:10 Chest/axilla: Inspection: normal, Palpation: crepitus, is not appreciated, tenderness, is not appreciated, 20:10 Cardiovascular: Rate: tachycardic, Rhythm: regular, Edema: is not appreciated, JVD: is not appreciated, 20:10 Respiratory: the patient does not display signs of respiratory distress, Respirations: normal, no use of accessory muscles, no retractions, labored breathing, is not present, Breath sounds: are clear throughout, no decreased breath sounds, no stridor, no wheezing, 20:10 Abdomen/GI: Inspection: abdomen appears normal, Bowel sounds: active, all quadrants, Palpation: soft, in all quadrants, moderate abdominal tenderness, in all quadrants, rebound tenderness, is not appreciated, involuntary guarding, is not appreciated, 20:10 Back: CVA tenderness, is absent, 20:10 Neuro: Orientation: to person, place \\T\\ time. Mentation: is normal, Motor: moves all fours, strength is normal, 21:40 ECG was reviewed by the Attending Physician. cp Vital Signs: 19:37 BP 105 / 74; Pulse 101; Resp 18; Temp 98.7(O); Pulse Ox 99% on R/A; Weight 54.43 kg km8 (R); Height 5 ft. 3 in. (R); Pain 10/10; 19:55 BP 117 / 88; Pulse 99; Resp 24; Pulse Ox 98% on R/A; kd3 19:55 BP 111 / 91; Pulse 92; Resp 20; Pulse Ox 98% ; kd3 23:44 BP 117 / 80; Pulse 92; Resp 20; Pulse Ox 94% on R/A; jb4 08/31 00:00 BP 111 / 79; Pulse 96; Resp 20; Pulse Ox 100% ; jb4 01:00 BP 108 / 62; Pulse 79; Resp 18; Temp 98; Pulse Ox 98% ; jb4 08/30 19:37 Body Mass Index 21.26 (54.43 kg, 160.02 cm) km8 08/30 19:37 Pain Scale: Adult km Anirudh Coma Score: 08/30 20:08 Eye Response: spontaneous(4). Motor Response: obeys commands(6). Verbal Response: kd3 oriented(5). Total: 15. 08/31 01:00 Eye Response: spontaneous(4). Motor Response: obeys commands(6). Verbal Response: jb4 oriented(5). Total: 15. MDM: 08/30 19:42 Patient medically screened. cp 21:00 Differential diagnosis: gastritis, pancreatitis, appendicitis, diverticulitis, viral cp gastroenteritis, gastroenteritis, acute SD, dehydration, cardiac arrythmia. 08/31 00:41 Data reviewed: vital signs, nurses notes, lab test result(s), EKG, radiologic studies, cp CT scan, and as a result, I will discharge patient. Consideration of Admission/Observation Escalation of care including admission/observation considered. ED course: Patient voided multiple times while in ED. Significant other at bedside. Will discharge to home for continued monitoring. 08/30 19:52 Order name: CBC with Diff; Complete Time: 21:41 cp 08/30 21:42 Interpretation: Normal except: BRANDON% 34.0; LYM% 59.0; NEUT A 1.7. cp 08/30 19:52 Order name: CMP; Complete Time: 21:41 cp 08/30 21:41 Interpretation: Normal except: AST 57; CA 8.0; TP 8.9; ALB 3.3; GLOB 5.6; A/G 0.6. cp 08/30 19:52 Order name: Lipase; Complete Time: 21:41 cp 08/30 19:52 Order name: Urinalysis w/ reflexes; Complete Time: 21:41 cp 08/30 21:41 Interpretation: Normal except: [facility] Extremely Turbid; Urine SG < 1.005; UBLD Trace; cp UESTR 500. 08/30 20:17 Order name: Magnesium; Complete Time: 21:41 cp 08/30 20:17 Order name: NT PRO-BNP; Complete Time: 21:41 cp 08/30 20:17 Order name: PT-INR; Complete Time: 21:41 cp 08/30 20:17 Order name: Troponin HS; Complete Time: 21:41 cp 08/30 20:18 Order name: UDS; Complete Time: 21:41 cp 08/30 20:18 Order name: ETOH Level; Complete Time: 21:41 cp 08/30 21:42 Interpretation: Abnormal: ETOH 430. cp 08/30 20:23 Order name: PTT, Activated Partial Thromb; Complete Time: 21:41 EDMS 08/30 20:17 Order name: XRAY Chest (1 view); Complete Time: 21:41 cp 08/30 21:43 Order name: CT Abd/Pelvis - IV Contrast Only cp 08/30 20:17 Order name: EKG; Complete Time: 20:18 cp 08/30 19:52 Order name: IV Saline Lock; Complete Time: 20:08 cp 08/30 19:52 Order name: Labs collected and sent; Complete Time: 20:08 cp 08/30 20:17 Order name: Cardiac monitoring; Complete Time: 20:47 cp 08/30 20:17 Order name: EKG - Nurse/Tech; Complete Time: 21:30 cp 08/30 20:17 Order name: O2 Per Protocol; Complete Time: 20:47 cp 08/30 20:17 Order name: O2 Sat Monitoring; Complete Time: 20:47 cp 08/31 00:45 Order name: PO challenge; Complete Time: 01:16 cp EC/11 21:40 Rate is 90 beats/min. Rhythm is regular. MO interval is normal. QRS interval is normal. cp QT interval is normal. T waves are Inverted in lead aVR. Interpreted by me. Reviewed by me. Administered Medications: 20:46 Drug: NS 0.9% IV 1000 ml IV at 1000 ml/hr Per protocol; 1000 mL bolus Route: IV; Rate: kd3 1000 ml/hr; Site: left forearm; 08/31 00:28 Follow up: IV Status: Completed infusion; IV Intake: 1000ml 4 08/30 20:51 Drug: Ondansetron IVP 4 mg IVP once; over 2 minutes Route: IVP; Site: left forearm; kd3 08/31 00:29 Follow up: Response: No adverse reaction jb4 08/30 20:51 Drug: Famotidine IVP 20 mg IVP once; dilute with 10 mL 0.9% NaCl; give over 2 minutes kd3 Route: IVP; Site: left forearm; 08/31 00:29 Follow up: Response: No adverse reaction jb4 Disposition: 04:02 Co-signature as Attending Physician, Michele Olea MD I reviewed the patient's care rt provided by the Advanced Practice Provider and agree with the diagnosis and treatment plan. Disposition Summary: 08/31/23 00:44 Discharge Ordered Notes: Location: Home cp Problem: new cp Symptoms: have improved cp Condition: Stable cp Diagnosis - Nausea with vomiting, unspecified cp - Diarrhea, unspecified cp - Alcohol dependence with intoxication cp Followup: cp - With: Private Physician - When: 2 - 3 days - Reason: Recheck today's complaints Discharge Instructions: - Discharge Summary Sheet cp - Alcohol Intoxication cp - Diarrhea, Adult cp - Nausea and Vomiting, Adult cp - Alcohol Abuse and Nutrition cp - Alcohol Abuse and Dependence Information, Adult cp Forms: - Medication Reconciliation Form cp - Thank You Letter cp - Antibiotic Education cp - Prescription Opioid Use cp - Patient Portal Instructions cp - Leadership Thank You Letter cp Signatures: Dispatcher [employer] EDOR Hari Doan PA PA cp Sunitha Rivera RN RN kd3 Michele Olea MD MD rt Lyric Low RN RN km8 Tejas Arrington RN jb4 Corrections: (The following items were deleted from the chart) 08/30 19:39 19:39 PMHx: None; edne harmon 20:24 20:18 PTT, ACTIVATED+COAG.LAB.BRZ ordered. EDOR EDMS 21:42 21:41 Normal except: BRANDON% 34.0; LYM% 59.0. cp cp
[2023-08-31 06:48] VITALS: BP 108/62; TEMP 98; O2SAT 98
--- NOTE | 2023-08-31 13:23 | EKG ---
Test Date: 2023-08-30 Test Time: 21:34:52 [place] Block Setter: JOSE MEASUREMENT RESULTS: Intervals: Rate: 90 MA: 144 QRSD: 72 QT: 384 QTc: 469 [place]: P: 76 MA: 144 QRS: 48 T: 68 INTERPRETIVE STATEMENTS: Normal sinus rhythm Low voltage QRS Septal infarct, age undetermined Abnormal ECG Compared to ECG 10/20/2021 09:42:15 Low QRS voltage now present Myocardial infarct finding still present Electronically Signed On 08-31-23 13:22:22 VISCOSE DEPARTMENT WORKER by Abelardo Worley
--- NOTE | 2023-08-31 22:33 | RAD REPORT ---
EXAM DESCRIPTION: CT - Abdomen Pelvis W Contrast - 08/31/2023 6:16 am CLINICAL HISTORY: 53 years Female ABD PAIN COMPARISON: None. TECHNIQUE: Contiguous axial images obtained through the abdomen and pelvis following IV contrast. Re formatted images obtained. This exam was performed according to our department optimization program which includes automated exp osure control, adjustment of the mA and/or kv according to patient size and/or use of iterative recon struction technique. FINDINGS: Minimal scarring/atelectasis in the lower lungs. Small hiatal hernia. The liver appears unremarkable. The spleen appears unremarkable. The pancreatic duct is mildly prominent in the region of the pancreatic head. No adrenal masses. Mild prominence of the renal collecting systems bilaterally. No ureteral calculi are identified. The findings may be secondary to distention of the urinary bladder. The gallbladder is visualized. No aneurysmal dilatation of the aorta. No bowel obstruction. The appendix appears unremarkable. There is colonic diverticulosis. No significant free pelvic fluid. The urinary bladder is distended. There are likely changes fr om previous hysterectomy. Small fat-containing umbilical hernia. Degenerative changes in the spine. IMPRESSION: Mild bilateral hydronephrosis likely secondary to distention of the urinary bladder. Mild prominence of the pancreatic duct in the pancreatic head. Electronically signed by: Kelvin Morillo MD 08/30/2023 11:57 PM DOCTOR ASSISTANT Due to temporary technical issues with the PACS/Fluency reporting system, reports are being signed by the in house radiologists without review as a courtesy to insure prompt reporting. The interpreting radiologist is fully responsible for the content of the report.
== END ==
LOC: ER 18:34
DX: R11.2 Nausea with vomiting, unspecified (principal); R19.7 Diarrhea, unspecified; F10.229 Alcohol dependence with intoxication, unspecified; F17.220 Nicotine dependence, chewing tobacco, uncomplicated
CPT/HCPCS: 96361; 93005; 85025; 81001; 36415; 83735; 85610; 85730; 84484; 83690; 80053; 83880; 80307; 74177; 71045; 96375; 96374; 99284; 82077; Q9967; J2405; J7030

== ENCOUNTER → 2023-09-21 | Emergency (ER) | payer OTHER ==
[~2023-09-21] MED LIST changes: +CEFTRIAXONE 1000 MG/VIAL ONE; -FAMOTIDINE 20 MG/2 ML VIAL IV ONE
[2023-09-21 13:18] LABS: SARS-CoV-2 Antigen Rapid Res Negative (Negative)
[2023-09-21 13:21] LABS: Specific Gravity < 1.005 (1.005-1.030); Urine Bacteria <20 /HPF (<20); Urine Bilirubin NEGATIVE (Negative); Urine Blood 1+ (Negative); Urine Clarity Extremely Turbid (Clear); Urine Color Light-Yellow (Yellow); Urine Glucose NEGATIVE (Negative); Urine Protein NEGATIVE (Negative); Urine RBC None Seen /HPF (None Seen); Urine Urobilinogen Normal (Normal)
[2023-09-21 13:22] LABS: Urine WBC Clump Rare /HPF (None Seen)
[2023-09-21 13:23] LABS: Hematocrit 34.5 % (36.0-45.0); MCV 94.9 fL (80-100); MPV 8.3 fL (7.6-11.3); Platelets 171 thou/uL (152-406); RBC Red Blood Cell Count 3.64 M/uL (3.86-4.86)
[2023-09-21 13:32] LABS: Albumin 3.1 g/dL (3.4-5.0); Bilirubin Total 0.5 mg/dL (0.2-1.0); Potassium 4.2 mEq/L (3.5-5.1); Protein, Total 7.8 g/dL (6.4-8.2)
--- NOTE | 2023-09-21 14:11 | RAD REPORT ---
EXAM DESCRIPTION: CT - Abdomen Pelvis W Contrast - 09/21/2023 1:53 pm CLINICAL HISTORY: Abdominal pain COMPARISON: August 30, 2023 TECHNIQUE: Computed axial tomography of the abdomen pelvis was obtained. 100 cc Isovue-300 was admin istered intravenously. Oral contrast was not requested which limits evaluation of bowel and appendix All CT scans are performed using dose optimization technique as appropriate and may include automated exposure control or mA/KV adjustment according to patient size. FINDINGS: Mild fatty infiltration Spleen, pancreas, and adrenals appear unremarkable. Mild bilateral hydronephrosis. Mild dilatation of the ureters. Bladder is distended with a thickened wall There is no evidence of diverticulitis. Small calcification within the duodenum unchanged No adnexal mass . Small umbilical hernia IMPRESSION: Bladder distention. The wall is thickened which may indicate inflammation. Mild bilateral hydronephrosis may be the result of the bladder distention
--- NOTE | 2023-09-21 14:55 | ER ---
Nurse's Notes [facility] Name: Kerry Teresa Age: 53 yrs Sex: Female : 1970 Arrival Date: 09/21/2023 Time: 12:36 Bed 14 Private MD: Diagnosis: UTI/ Urinary tract infection, site not specified;Nausea with vomiting, unspecified Presentation: 09/21 12:38 Chief complaint: EMS states: toned out for abdominal pain and generalized body aches. me1 c/o n/v/d for a couple of days. Can't keep down water but drank 3 bud ice. Gait is unsteady. 22 g RAC. Zofran 4 mg IV administered with about 300 ml of NS. Took tylenol earlier this morning at home. Coronavirus screen: Vaccine status: Patient reports being unvaccinated. Ebola Screen: No symptoms or risks identified at this time. Initial Sepsis Screen: Does the patient meet any 2 criteria? HR > 90 bpm. No. Patient's initial sepsis screen is negative. Does the patient have a suspected source of infection? Yes: Acute abdominal pain. Risk Assessment: Do you want to hurt yourself or someone else? Patient reports no desire to harm self or others. Onset of symptoms is unknown. 12:38 Method Of Arrival: EMS me1 12:38 Acuity: KINGS 3 me1 Triage Assessment: 12:43 General: Appears uncomfortable, ill, well groomed, well developed, well nourished, me1 Behavior is calm, cooperative, appropriate for age, Smells of alcohol, Reports toned out for abdominal pain and generalized body aches. c/o n/v/d for a couple of days. Can't keep down water but drank 3 bud ice. Gait is unsteady. 22 g RAC. Zofran 4 mg IV administered with about 300 ml of NS. Took tylenol earlier this morning at home. Pain: Complains of pain in right upper quadrant and left upper quadrant Pain does not radiate. Pain currently is 10 out of 10 on a pain scale. Quality of pain is described as crampy, Pain began 2-3 days ago. Is continuous. Neuro: Level of Consciousness is awake, alert, obeys commands, Oriented to person, place, time, situation, Appropriate for age. Cardiovascular: Capillary refill < 3 seconds Patient's skin is warm and dry. Respiratory: Airway is patent Respiratory effort is even, unlabored, Respiratory pattern is regular, symmetrical. GI: Abdomen is round non-distended, Reports cramping, diarrhea, nausea, vomiting. 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 - Social history:: Smoking status: Patient reports use of chewing tobacco. - Family history:: not pertinent. - Hospitalizations: : No recent hospitalization is reported. Screenin:46 [facility] ED Fall Risk Assessment (Adult) History of falling in the last 3 months, mt1 including since admission No falls in past 3 months (0 pts) Confusion or Disorientation No (0 pts) Intoxicated or Sedated Yes (3 pts) Impaired Gait Yes (1 pt) Mobility Assist Device Used No (0 pt) Altered Elimination No (0 pt) Score/Fall Risk Level 0 - 2 = Low Risk Maintained a safe environment, Provided non-skid footwear, Hourly rounding (assess needs \T\ fall precautionary measures) done. Abuse screen: Denies threats or abuse. Nutritional screening: No deficits noted. Tuberculosis screening: No symptoms or risk factors identified. Assessment: 12:46 General: See triage assessment. . me1 14:52 General: Post void residual= 79 ml. me1 Vital Signs: 12:38 BP 133 / 91; Pulse 106; Resp 18; Temp 98.4(O); Pulse Ox 100% on R/A; Weight 49.9 kg; me1 Height 5 ft. 3 in. ; Pain 10/10; 13:04 BP 106 / 78; Pulse 97; Resp 20; Pulse Ox 100% on R/A; me1 14:00 BP 106 / 74; Pulse 92; Resp 18; Pulse Ox 98% on R/A; me1 15:10 BP 120 / 92; Pulse 103; Resp 16 S; Pulse Ox 100% on R/A; as6 12:38 Body Mass Index 19.49 (49.90 kg, 160.02 cm) mt1 12:38 Pain Scale: Adult [facility] ED Course: 12:38 Patient arrived in ED. rn 12:38 Luisito Abraham MD is Attending Physician. rn 12:38 Anum Bravo, LETY is Primary Nurse. me1 12:43 Triage completed. me1 12:43 Arm band placed on Patient placed in an exam room. me1 12:46 Allergy band placed. Bed in low position. Call light in reach. Side rails up X2. me1 Provided Education on: POC. Verbalized understanding. . 12:46 No provider procedures requiring assistance completed. Maintain EMS IV. Dressing me1 intact. Good blood return noted. Site clean \T\ dry. Gauge \T\ site: 22g RAC. 13:03 Flu Sent. bc6 13:03 SARS RAPID Sent. bc6 13:03 CBC with Diff Sent. bc6 13:03 CMP Sent. bc6 13:03 Lipase Sent. bc6 13:11 Urinalysis w/ reflexes Sent. me1 13:55 CT Abd/Pelvis - IV Contrast Only In Process Unspecified. EDMS 15:11 IV discontinued, intact, bleeding controlled, No redness/swelling at site. Pressure as6 dressing applied. Administered Medications: 13:12 Drug: NS 0.9% IV 1000 ml IV at 1 bolus Per protocol; 1000 mL bolus Route: IV; Rate: 1 me1 bolus; Site: right antecubital; 15:11 Follow up: Response: No adverse reaction; IV Status: Completed infusion; IV Intake: as6 1000ml 13:12 Drug: Ondansetron IVP 4 mg IVP once; over 2 minutes Route: IVP; Site: right antecubital;me1 13:12 Follow up: Response: No adverse reaction me1 14:52 Drug: Rocephin IV 1 grams IV at calculated rate once; Given slow IV push per pharmacy me1 instructions Route: IV; Rate: calculated rate; Site: right antecubital; 15:05 Follow up: Response: No adverse reaction; IV Status: Completed infusion me1 Medication: 12:46 VIS not applicable for this client. me1 Intake: 15:11 IV: 1000ml; Total: 1000ml. as6 Outcome: 14:55 Discharge ordered by . rn 15:10 Discharged to home ambulatory, as6 15:10 Condition: stable 15:10 Discharge instructions given to patient, Instructed on discharge instructions, follow up and referral plans. medication usage, Demonstrated understanding of instructions, follow-up care, medications, Prescriptions given X 2, 15:13 Patient left the ED. as6 Signatures: Dispatcher [employer] Luisito Freire MD MD rn Slawson, Ashby, RN RN as6 Kellie Petty 6 Anum Bravo RN RN me1
--- NOTE | 2023-09-21 14:55 | EDPHYS ---
Physician Documentation [facility] Name: Kerry Teresa Age: 53 yrs Sex: Female : 1970 Arrival Date: 09/21/2023 Time: 12:36 Bed 14 Private MD: ED Physician Luisito Abraham HPI: 09/21 13:23 This 53 yrs old Black Female presents to ER via EMS with complaints of abd pain. rn 13:23 The patient presents with abdominal pain that is diffuse. Onset: The symptoms/episode rn began/occurred 2 day(s) ago. The symptoms do not radiate. Associated signs and symptoms: Pertinent positives: nausea and vomiting, diarrhea, fever, Pertinent negatives: blood in stools. Modifying factors: The symptoms are alleviated by nothing, the symptoms are aggravated by nothing. Severity of pain: At its worst the pain was mild in the emergency department the pain is unchanged. The patient has not experienced similar symptoms in the past. Patient reports feeling sick for 2 or 3 days. Reports nausea/vomiting/diarrhea with abdominal pain. Associated with runny nose and cough as well. Positive headache. No known sick contacts. No blood in stool. Reports generalized weakness and malaise. 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 - Social history:: Smoking status: Patient reports use of chewing tobacco. - Family history:: not pertinent. - Hospitalizations: : No recent hospitalization is reported. ROS: 13:23 Constitutional: Positive for fever and chills Eyes: Negative for injury, pain, redness, rn and discharge, ENT: Positive for runny nose and congestion Cardiovascular: Negative for chest pain, palpitations, and edema, Respiratory: Positive for cough, negative for shortness of breath Abdomen/GI: Positive for nausea/vomiting/diarrhea MS/Extremity: Negative for injury and deformity, Skin: Negative for injury, rash, and discoloration, Neuro: Positive for headache and generalized weakness Exam: 13:23 Constitutional: This is a well developed, well nourished patient who is awake, alert, rn and in no acute distress. Patient using her phone and laughing with joking Head/Face: Normocephalic, atraumatic. Cardiovascular: Tachycardic, regular. No pulse deficits. Respiratory: No increased work of breathing, no retractions or nasal flaring. Abdomen/GI: Soft, no focal tenderness MS/ Extremity: Pulses equal, no cyanosis. Neuro: Awake and alert, GCS 15 Vital Signs: 12:38 BP 133 / 91; Pulse 106; Resp 18; Temp 98.4(O); Pulse Ox 100% on R/A; Weight 49.9 kg; me1 Height 5 ft. 3 in. ; Pain 10/10; 13:04 BP 106 / 78; Pulse 97; Resp 20; Pulse Ox 100% on R/A; me1 14:00 BP 106 / 74; Pulse 92; Resp 18; Pulse Ox 98% on R/A; me1 15:10 BP 120 / 92; Pulse 103; Resp 16 S; Pulse Ox 100% on R/A; as6 12:38 Body Mass Index 19.49 (49.90 kg, 160.02 cm) me1 12:38 Pain Scale: Adult me1 MDM: 12:38 Patient medically screened. rn 14:53 ED course: Post void residual 73 ml, no evidence of obstruction, CT findings of UTI, no rn evidence of pyelonephritis, will dc home with prn zofran and abx. . 02 12:38 Order name: CBC with Diff; Complete Time: 13:33 rn 09/21 12:38 Order name: CMP; Complete Time: 13:33 rn 09/21 12:38 Order name: Lipase; Complete Time: 13:33 rn 09/21 12:38 Order name: Urinalysis w/ reflexes; Complete Time: 13:33 rn 09/21 12:39 Order name: Flu; Complete Time: 13:33 rn 09/21 12:39 Order name: SARS RAPID; Complete Time: 13:33 rn 09/21 12:38 Order name: CT Abd/Pelvis - IV Contrast Only; Complete Time: 14:12 rn 09/21 12:38 Order name: IV Saline Lock; Complete Time: 12:48 rn 09/21 12:38 Order name: Labs collected and sent; Complete Time: 13:03 rn Administered Medications: 13:12 Drug: NS 0.9% IV 1000 ml IV at 1 bolus Per protocol; 1000 mL bolus Route: IV; Rate: 1 me1 bolus; Site: right antecubital; 15:11 Follow up: Response: No adverse reaction; IV Status: Completed infusion; IV Intake: as6 1000ml 13:12 Drug: Ondansetron IVP 4 mg IVP once; over 2 minutes Route: IVP; Site: right antecubital;me1 13:12 Follow up: Response: No adverse reaction me1 14:52 Drug: Rocephin IV 1 grams IV at calculated rate once; Given slow IV push per pharmacy me1 instructions Route: IV; Rate: calculated rate; Site: right antecubital; 15:05 Follow up: Response: No adverse reaction; IV Status: Completed infusion me1 Disposition Summary: 09/21/23 14:55 Discharge Ordered Notes: Location: Home rn Problem: new rn Symptoms: have improved rn Condition: Stable rn Diagnosis - UTI/ Urinary tract infection, site not specified rn - Nausea with vomiting, unspecified rn Followup: rn - With: Private Physician - When: As needed - Reason: Recheck today's complaints, Re-evaluation by your physician Discharge Instructions: - Discharge Summary Sheet rn - Nausea and Vomiting, Adult rn - Urinary Tract Infection, Adult rn Forms: - Medication Reconciliation Form rn - Thank You Letter rn - Antibiotic internal controls analyst - Prescription Opioid Use rn - Patient Portal Instructions rn - Leadership Thank You Letter rn Prescriptions: - ondansetron 4 mg Oral Tablet,disintegrating - take 1 tablet ORAL route every 8 hours As needed; 15 tablet; Refills: 0, rn Product Selection Permitted - Cipro 500 mg Oral tablet - take 1 tablet ORAL route every 12 hours for 14 days; 28 tablet; Refills: 0, rn Product Selection Permitted Signatures: Dispatcher [employer] Luisito Freire MD MD rn Eddleman, Michelle RN RN me1 Uvaldo Partida RN as6
[2023-09-21 15:32] VITALS: BP 120/92; TEMP 98.4; O2SAT 100
== END ==
LOC: ER 12:36
DX: N39.0 Urinary tract infection, site not specified (principal); F10.20 Alcohol dependence, uncomplicated; F17.220 Nicotine dependence, chewing tobacco, uncomplicated; Z11.52 Encounter for screening for COVID-19
CPT/HCPCS: 85025; 81001; 36415; 83690; 80053; 87804 ×2; 74177; 87811; Q9967; J2405; J7030; J0696

== ENCOUNTER 2024-01-15 22:16 | Emergency (ER) | payer SELFPAY, OTHER ==
[2024-01-15] MEDS ORDERED: NA CHLORIDE 0.9% 500 ML ONE (22:49)
[2024-01-15 23:37] LABS: Absolute Eosinophils 0.1 K/uL (0-0.5); Absolute Lymphocytes (CBC) 2.7 K/uL (0.7-4.9); Absolute Monocytes 0.6 K/uL (0.1-1.3); Absolute Neutrophil 1.8 K/uL (1.8-8.0); Basophils % 0.7 % (0-1.3); Eosinophils % 1.4 % (0-4.4); Hematocrit 37.3 % (36.0-45.0); Hemoglobin 12.5 g/dL (12.0-15.0); Lymphocytes % 50.8 % (15.3-44.8); MCH 32.8 pg (27.0-35.0); MCHC 33.5 g/dL (32.0-36.0); MCV 97.9 fL (80-100); MPV 9.3 fL (7.6-11.3); Monocytes % 12.2 % (3.3-12.3); Neutrophils % 34.9 % (41.7-73.7); Platelets 229 thou/uL (152-406); RBC Red Blood Cell Count 3.81 M/uL (3.86-4.86); Red Cell Distribution Width 12.8 % (12.1-15.2)
[2024-01-15 23:39] LABS: PT Prothrombin Time 10.5 SECONDS (9.5-12.5); PTT, Activated Partial Thromb 36.2 SECONDS (24.3-36.9); Protime INR 0.95; Specific Gravity < 1.005 (1.005-1.030); Urine Bilirubin NEGATIVE (Negative); Urine Blood Negative (Negative); Urine Clarity Clear (Clear); Urine Color Colorless (Yellow); Urine Glucose NEGATIVE (Negative); Urine Ketones NEGATIVE (Negative); Urine Microscopic Reflex YN NO UMIC; Urine Nitrite NEGATIVE (Negative); Urine Protein NEGATIVE (Negative); Urine Urobilinogen Normal (Normal)
[2024-01-15 23:47] LABS: Barbiturates NEGATIVE (NEGATIVE); Benzodiazepines NEGATIVE (NEGATIVE); Cocaine POSITIVE (NEGATIVE); METHAMPHETAM NEGATIVE (NEGATIVE); Methadone NEGATIVE (NEGATIVE); Opiates NEGATIVE (NEGATIVE); Phencyclidine NEGATIVE (NEGATIVE); THC Cannibis NEGATIVE (NEGATIVE)
[2024-01-15 23:51] LABS: Albumin 3.3 g/dL (3.4-5.0); Albumin/Globulin Ratio 0.6 (1.1-1.8); Anion Gap 8.9 mEq/L (5.0-15.0); Bilirubin Direct 0.2 mg/dL (0-0.2); Bilirubin Indirect, Calculated 0.2 mg/dL (0.2-0.8); Bilirubin Total 0.4 mg/dL (0.2-1.0); Globulin 5.2 g/dL (2.3-3.5); Potassium 3.9 mEq/L (3.5-5.1); Protein, Total 8.5 g/dL (6.4-8.2)
[2024-01-16] MEDS ORDERED: KETOROLAC 30 MG/ML INJ ONE (00:53)
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
[2024-01-16 03:08] VITALS: BP 115/83; TEMP 97.1; O2SAT 100
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
--- NOTE | 2024-01-18 17:00 | EKG ---
Test Date: 2024-01-15 Test Time: 23:43:41 Crime Scene Technician: ZAYDA MEASUREMENT RESULTS: Intervals: Rate: 84 MT: 140 QRSD: 66 QT: 392 QTc: 463 [place]: P: 64 MT: 140 QRS: 28 T: 71 INTERPRETIVE STATEMENTS: Normal sinus rhythm Low voltage QRS Septal infarct, age undetermined Abnormal ECG Compared to ECG 01/07/2024 16:02:30 Low QRS voltage now present Short MT interval no longer present Myocardial infarct finding still present Electronically Signed On 01-18-24 16:51:18 CDT by Abelardo Worley
== END 2024-01-16 02:31 | disposition home or self-care (01) ==
LOC: ER 22:16
DX: R33.9 Retention of urine, unspecified (principal); M54.2 Cervicalgia; F10.229 Alcohol dependence with intoxication, unspecified; V03.90XA Pedestrian on foot injured in collision with car, pick-up truck or van, unspecified whether traffic or nontraffic accident, initial encounter
CPT/HCPCS: 36415; 51702; 70450; 71260; 72125; 74177; 80048; 80076; 80307; 81003; 81025; 82077; 85025; 85610; 85730; 93005; 96361; 96374; 99285; J7040; Q9967

== ENCOUNTER 2024-01-19 10:47 | Emergency (ER) | payer OTHER, SELFPAY ==
--- NOTE | 2024-01-19 12:23 | ER ---
Nurse's Notes [facility] Name: Kerry Teresa Age: 53 yrs Sex: Female : 1970 Arrival Date: 01/19/2024 Time: 10:47 Bed 5 Private MD: Diagnosis: Other mechanical complication of urinary (indwelling) catheter-removal, pain;Nondisplaced fracture of proximal phalanx of left little finger-left 5th proximal phalanx Presentation: 01/18 11:03 Chief complaint: Patient states: Wants catheter taken out because its bothersome. No ll1 fever. Coronavirus screen: Client denies travel out of the [place] in the last 14 days. At this time, the client does not indicate any symptoms associated with coronavirus-19. Ebola Screen: Patient denies travel to an Ebola-affected area in the 21 days before illness onset. Initial Sepsis Screen: Does the patient meet any 2 criteria? No. Patient's initial sepsis screen is negative. Does the patient have a suspected source of infection? No. Patient's initial sepsis screen is negative. Risk Assessment: Do you want to hurt yourself or someone else? Patient reports no desire to harm self or others. Onset of symptoms was January 19, 2024. 11:03 Method Of Arrival: Ambulatory ll1 11:03 Acuity: KINGS 4 ll1 Triage Assessment: 11:05 General: Appears in no apparent distress. Behavior is calm, cooperative, appropriate ll1 for age, Reports wanting catheter removed. Pain: Denies pain. : Reports wanting catheter removed. Historical: - Allergies: 11:03 No Known Allergies; ll1 - PMHx: 11:03 Alcohol dependence; ll1 - PSHx: 11:03 hysterectomy (l ); ll1 - Immunization history:: Adult Immunizations up to date. - Infectious Disease History:: Denies. - Social history:: Smoking status: Patient reports use of chewing tobacco. Screenin:44 [facility] ED Fall Risk Assessment (Adult) History of falling in the last 3 months, ph including since admission No falls in past 3 months (0 pts) Confusion or Disorientation No (0 pts) Intoxicated or Sedated No (0 pts) Impaired Gait No (0 pts) Mobility Assist Device Used No (0 pt) Altered Elimination No (0 pt) Score/Fall Risk Level 0 - 2 = Low Risk Oriented to surroundings, Maintained a safe environment, Hourly rounding (assess needs \T\ fall precautionary measures) done. Abuse screen: Denies threats or abuse. Denies injuries from another. Nutritional screening: No deficits noted. On. Tuberculosis screening: No symptoms or risk factors identified. Assessment: 11:05 General: Appears in no apparent distress. Behavior is appropriate for age. : Reports bp CATHETER PROBLEM. 12:43 Reassessment: Patient appears in no apparent distress at this time. Patient and/or ph family updated on plan of care and expected duration. Pain level reassessed. Patient is alert, oriented x 3, equal unlabored respirations, skin warm/dry/pink. Pt c/o pain and swelling in L 5th digit, ERP notified, Xray ordered, d/c pending results. 14:21 Reassessment: Patient appears in no apparent distress at this time. Patient is alert, bp oriented x 3, equal unlabored respirations, skin warm/dry/pink. DC HOME AMBULATORY. Vital Signs: 11:03 BP 113 / 91; Pulse 95; Resp 17; Temp 98; Pulse Ox 100% ; Height 5 ft. 3 in. ; Pain 0/10;ll1 14:21 BP 117 / 85; Pulse 87; Resp 16; Pulse Ox 98% ; bp 11:03 Pain Scale: Adult ll1 ED Course: 10:51 Patient arrived in ED. ra3 10:56 Hari Alberts MD is Attending Physician. rigoberto 11:04 Triage completed. ll1 11:16 Patient placed in an exam room, on a stretcher. ll1 11:32 Joshua Carlin, RN is Primary Nurse. bp 12:41 Urinalysis w/ reflexes Sent. ph 12:45 Arm band placed on. ph 12:45 Patient has correct armband on for positive identification. Bed in low position. Call ph light in reach. Side rails up X 1. Pulse ox on. NIBP on. Door closed. Noise minimized. Warm blanket given. 12:45 Patient tolerated well. Cannon cath removed intact, balloon deflated. ph 12:45 No provider procedures requiring assistance completed. Patient did not have IV access ph during this emergency room visit. 13:10 Hand Left 3 View XRAY In Process Unspecified. EDMS 14:04 Jose Spear MD is Referral Physician. rigoberto 14:05 Referral Physician role handed off by Jose Spear MD [facility] 14:05 Angel Cerrato MD is Referral Physician. [facility] 14:20 Aluminum finger splint applied to left little finger. bp Administered Medications: 12:52 Drug: Ciprofloxacin PO 500 mg PO once Route: PO; ph 14:20 Follow up: Response: No adverse reaction bp Medication: 12:45 VIS not applicable for this client. ph Outcome: 12:22 Discharge ordered by . [facility] 14:21 Discharged to home ambulatory, bp 14:21 Condition: stable 14:21 Discharge instructions given to patient, Instructed on discharge instructions, follow up and referral plans. medication usage, Demonstrated understanding of instructions, follow-up care, medications, Prescriptions given X 2, 14:22 Patient left the ED. bp Signatures: Dispatcher [employer] EDMS Hari Alberts MD MD cha Hall, Patricia, RN RN Joshua Gaytan RN RN Isabel Gonzales RN RN ll1 Xiomara Hanson ra3 Corrections: (The following items were deleted from the chart) 11:19 11:03 Arm band placed on Patient placed in an exam room, on a stretcher, ll1 ll1 12:09 11:03 BP 113 / 91; Pulse 95bpm; Resp 17bpm; Pulse Ox 100%; Height 5 ft. 3 in.; Pain ll1 0/10, Adult; ll1
--- NOTE | 2024-01-19 12:23 | EDPHYS ---
Physician Documentation [facility] Name: Kerry Teresa Age: 53 yrs Sex: Female : 1970 Arrival Date: 01/19/2024 Time: 10:47 Bed 5 Private MD: JESÚS Physician Hari Alberts HPI: 01/18 11:59 This 53 yrs old Black Female presents to ER via Ambulatory with complaints of Problem rigoberto With Urinary Catheter. Historical: - Allergies: 11:03 No Known Allergies; ll1 - PMHx: 11:03 Alcohol dependence; ll1 - PSHx: 11:03 hysterectomy (l ); ll1 - Immunization history:: Adult Immunizations up to date. - Infectious Disease History:: Denies. - Social history:: Smoking status: Patient reports use of chewing tobacco. ROS: 12:14 Constitutional: Negative for fever, chills, and weight loss, Eyes: Negative for injury, rigoberto pain, redness, and discharge, ENT: Negative for injury, pain, and discharge, Neck: Negative for injury, pain, and swelling, Cardiovascular: Negative for chest pain, palpitations, and edema, Respiratory: Negative for shortness of breath, cough, wheezing, and pleuritic chest pain, Abdomen/GI: Negative for abdominal pain, nausea, vomiting, diarrhea, and constipation, Back: Negative for injury and pain, MS/Extremity: Negative for injury and deformity, Skin: Negative for injury, rash, and discoloration, Neuro: Negative for headache, weakness, numbness, tingling, and seizure, Psych: Negative for depression, anxiety, suicide ideation, homicidal ideation, and hallucinations, Allergy/Immunology: Negative for hives, rash, and allergies, Endocrine: Negative for neck swelling, polydipsia, polyuria, polyphagia, and marked weight changes, Hematologic/Lymphatic: Negative for swollen nodes, abnormal bleeding, and unusual bruising, 12:14 : Positive for difficulty urinating, of the suprapubic area, Exam: 12:14 Constitutional: This is a well developed, well nourished patient who is awake, alert, rigoberto and in no acute distress. Head/Face: Normocephalic, atraumatic. Eyes: Pupils equal round and reactive to light, extra-ocular motions intact. Lids and lashes normal. Conjunctiva and sclera are non-icteric and not injected. Cornea within normal limits. Periorbital areas with no swelling, redness, or edema. ENT: Nares patent. No nasal discharge, no septal abnormalities noted. Tympanic membranes are normal and external auditory canals are clear. Oropharynx with no redness, swelling, or masses, exudates, or evidence of obstruction, uvula midline. Mucous membranes moist. Neck: Trachea midline, no thyromegaly or masses palpated, and no cervical lymphadenopathy. Supple, full range of motion without nuchal rigidity, or vertebral point tenderness. No Meningismus. Chest/axilla: Normal chest wall appearance and motion. Nontender with no deformity. No lesions are appreciated. Cardiovascular: Regular rate and rhythm with a normal S1 and S2. No gallops, murmurs, or rubs. Normal PMI, no JVD. No pulse deficits. Respiratory: Lungs have equal breath sounds bilaterally, clear to auscultation and percussion. No rales, rhonchi or wheezes noted. No increased work of breathing, no retractions or nasal flaring. Back: No spinal tenderness. No costovertebral tenderness. Full range of motion. Skin: Warm, dry with normal turgor. Normal color with no rashes, no lesions, and no evidence of cellulitis. MS/ Extremity: Pulses equal, no cyanosis. Neurovascular intact. Full, normal range of motion. Neuro: Awake and alert, GCS 15, oriented to person, place, time, and situation. Cranial nerves II-XII grossly intact. Motor strength 5/5 in all extremities. Sensory grossly intact. Cerebellar exam normal. Normal gait. Psych: Awake, alert, with orientation to person, place and time. Behavior, mood, and affect are within normal limits. 12:14 Abdomen/GI: Inspection: abdomen appears normal, Bowel sounds: normal, Palpation: abdomen is soft and non-tender, Liver: no appreciated palpable abnormalities, Hernia: not appreciated, 12:14 : CVA tenderness, is absent, Pelvic Exam: is not necessary for this patient, Sexual behavior: the patient is not sexually active, Vital Signs: 11:03 BP 113 / 91; Pulse 95; Resp 17; Temp 98; Pulse Ox 100% ; Height 5 ft. 3 in. ; Pain 0/10;ll1 14:21 BP 117 / 85; Pulse 87; Resp 16; Pulse Ox 98% ; bp 11:03 Pain Scale: Adult ll1 MDM: 10:55 Patient medically screened. rigoberto 10:56 Patient medically screened. rigoberto 12:19 Differential diagnosis: urinary tract infection. Data reviewed: vital signs, nurses [facility] notes, lab test result(s), urinalysis. Consideration of Admission/Observation Escalation of care including admission/observation considered. I considered the following discharge prescriptions or medication management in the emergency department Medications were administered in the Emergency Department. See MAR. Test considered but Not performed: Labs: no cbc, no comp. Care significantly affected by the following chronic conditions: alcohol dep. 01/18 11:13 Order name: Urinalysis w/ reflexes; Complete Time: 12:43 [facility] 01/18 12:42 Order name: Hand Left 3 View XRAY [facility] 01/18 11:13 Order name: Cannon: remove; Complete Time: 12:41 [facility] 01/18 14:01 Order name: Splint - Finger; Complete Time: 14:20 [facility] Administered Medications: 12:52 Drug: Ciprofloxacin PO 500 mg PO once Route: PO; ph 14:20 Follow up: Response: No adverse reaction bp Disposition Summary: 01/19/24 12:22 Discharge Ordered Notes: Location: Home [facility] Problem: new [facility] Symptoms: have improved rigoberto Condition: Stable rigoberto Diagnosis - Other mechanical complication of urinary (indwelling) catheter - removal, pain rigoberto - Nondisplaced fracture of proximal phalanx of left little finger - left 5th proximal rigoberto phalanx Followup: rigoberto - With: Private Physician - When: 2 - 3 days - Reason: Recheck today's complaints, Continuance of care, Re-evaluation by your physician Followup: rigoberto - With: Jose Spear MD - When: 2 - 3 days - Reason: Recheck today's complaints, Continuance of care, Re-evaluation by your physician Followup: [facility] - With: Angel Cerrato MD - When: 2 - 3 days - Reason: Recheck today's complaints, Re-evaluation by your physician Discharge Instructions: - Discharge Summary Sheet rigoberto - Finger Fracture, Adult rigoberto - Finger Fracture, Adult, [id number] [facility] - Indwelling Urinary Catheter Care, Adult, [id number] [facility] Forms: - Medication Reconciliation Form [facility] - Antibiotic Education [facility] - Prescription Opioid Use [facility] - Patient Portal Instructions [facility] - Leadership Thank You Letter [facility] Prescriptions: - Cipro 250 mg Oral tablet - take 1 tablet ORAL route every 12 hours; 10 tablet; Refills: 0, Product rigoberto Selection Permitted - Motrin IB 200 mg Oral tablet - take 2 tablet ORAL route every 6 hours As needed as needed with food; 30 rigoberto tablet; Refills: 0, Product Selection Permitted Signatures: Dispatcher [employer] Hari Delgado MD MD cha Hall, Patricia, RN RN Isable Boo RN RN [facility] Joshua Carlin RN bp
[2024-01-19 12:41] LABS: Specific Gravity 1.008 (1.005-1.030); Sqamous Epithelial <5 /HPF (None Seen); Urine Bacteria <20 /HPF (<20); Urine Bilirubin NEGATIVE (Negative); Urine Blood 2+ (Negative); Urine Clarity Turbid (Clear); Urine Color Light-Yellow (Yellow); Urine Culture Reflex Order NOT NEEDED; Urine Glucose NEGATIVE (Negative); Urine Ketones NEGATIVE (Negative); Urine Microscopic Reflex YN ORDER UMIC; Urine Mucus Slight /HPF (None Seen); Urine Nitrite NEGATIVE (Negative); Urine Protein 1+ (Negative); Urine Urobilinogen Normal (Normal); Urine WBC <5 /HPF (<5)
[2024-01-19] MEDS ORDERED: CIPROFLOXACIN HCL 500 MG TAB ONE (12:50)
--- NOTE | 2024-01-19 13:30 | RAD REPORT ---
EXAM DESCRIPTION: RAD - Hand Left 3 View - 01/19/2024 1:08 pm CLINICAL HISTORY: PAIN COMPARISON: No comparisons FINDINGS/IMPRESSION: Longitudinally oriented lucency at the fifth proximal phalanx concerning for a slightly displaced fracture. No intra-articular extension. No other fractures are identified.
[2024-01-19 14:34] VITALS: TEMP 98
[2024-01-19 14:52] VITALS: BP 117/85; O2SAT 98
== END 2024-01-19 14:22 | disposition home or self-care (01) ==
LOC: ER 10:47
PROC: 2W3KX1Z Immobilization of Left Finger using Splint (ICD-10-PCS; principal; 2024-01-19)
DX: T83.098A Other mechanical complication of other urinary catheter, initial encounter (principal); S62.647A Nondisplaced fracture of proximal phalanx of left little finger, initial encounter for closed fracture
CPT/HCPCS: 81001; 99284